=== PATIENT | female | born 1995 | race Two or more races ===

== ENCOUNTER 2024-07-25 15:46 | Outpatient (CLI) | payer SELFPAY ==
--- NOTE | 2024-07-25 15:45 | CRLHL7_ITS ---
For Patients: As a result of the Century Cures Act, medical imaging exams and procedure reports are released immediately into your electronic medical record. You may view this report before your referring provider. If you have questions, please contact your health care provider. OB ULTRASOUND ANATOMIC SURVEY LMP: 11/05/2023. EZIO by LMP: 08/11/2024. GA: 37 w, 4 d. INDICATION: Anemia complicating , third trimester. TECHNIQUE: Real time bernal scale imaging of the fetus was performed. position: Breech. Cervix: Not visualized. Placenta/cord: Fundal, Left Wall. Umbilical Cord: 3-vessel cord. Placenta insertion: Central. Amniotic Fluid: 4.4 cm SDP (greater than/equal to: 2- less than 8 cm). SURVEY: Observed Structures. Calvarium/Spine: Cerebellum: See comment. Cisterna Magna: See comment. Nuchal Fold: See comment. Lateral Ventricle: 4.6 mm. CSP: Yes. Midline Falx: Yes. Choroid Plexus: Yes. Spine: Yes. Abdomen: Stomach: Yes. Abd Cord Insertion: See comment. Urinary Bladder: Yes. Kidneys: Yes. Diaphragm: Yes. Face: Nose/lips: Yes. Orbital view: See comment. Profile: Yes. Limbs: Upper Extremities: See comment. Lower Extremities: Yes. Hands: Yes. Feet: Yes. Vascular: 4-Chamber Heart: Yes. LVOT: Yes. RVOT: See comment. 3VV: See comment. 3VTV: See comment. BPD: 9.0 cm. 36 w, 3 d, 37 percent. HC: 33.6 cm. 38 w, 3 d, 47 percent. AC: 35.8 cm. 39 w, 5 d, >97 percent. FL: 7.3 cm. 37 w, 2 d, 43 percent. FL/AC ratio: 20.34 percent. HC/AC ratio: 0.94. heart rate: 155 bpm. age by this US: 38 w, 0 d. EZIO by this US: 08/08/2024. EFW: 3541 g. Weight: 7 lbs, 13 oz. Percentile by EZIO: 84 percent. COMMENT: Limited exam due to age of 37 w 4 d. IMPRESSION: 1. Sonographic gestational age 38 weeks 0 days and sonographic due date 08/08/2024. Good correlation with dates. 2. Estimated weight 84th percentile. Abdominal circumference greater than 97th percentile. Jagjit Cummings M.D. Diagnostic Radiologist [email or web address] SP/Dictated by: Jagjit Cummings MD @ 07/25/2024 7:48:00 PM (Electronically Signed)
== END 2024-07-25 15:47 | disposition home or self-care (01) ==
LOC: US 15:47
PROVIDERS: Visit Provider Midwife
DX: O99.013 Anemia complicating pregnancy, third trimester (principal); Z3A.37 37 weeks gestation of pregnancy
CPT/HCPCS: 76805

== ENCOUNTER 2024-07-26 10:24 | Outpatient (CLI) | payer SELFPAY ==
[2024-07-26 10:29] VITALS: BP 115/73; PULSE 90; PULSE 93; PULSE 95; TEMP 36.7; O2SAT 93; O2SAT 97
[2024-07-26] MEDS: TERBUTALINE 1 MG/ML INJ 0.25 MG SUBCUT (11:40)
[2024-07-26 11:48] VITALS: PULSE 87; O2SAT 99
[2024-07-26] MEDS: LACTATED RINGERS 1000 ML 1,000 ML IV (11:50)
[2024-07-26 11:53] VITALS: PULSE 107; O2SAT 99
--- NOTE | 2024-07-26 12:03 | P.OBCN_ITS ---
OB - CN: HPI Date of Consult Date Seen: 07/26/24 Patient: [facility] Patient Consult date: 07/26/24 Requesting Physician: Susy Byrd MD Primary Care Provider: CNM group Consult Narrative Reason for consult: other (Breech presentation at 37 weeks for attempt at ECV) Narrative: The patient is a 28 year old G 4 P 1203 at 37 5/7 weeks gestation that was admitted to the Center on 07/26/24 for attempt at ECV due to malpresentation. History of Present Dating criteria: based on LMP care: limited care Ultrasounds: normal 1st trimester US (04/09/24: No detailed report, only assessment: The scan is normal and consistent with dates. Plan: Continue routine care.) and other (OB ultrasound completed on 07/25/2024: Breech presentation, fundal, left wall placenta, three-vessel umbilical cord, SDP:4.4cm. BPD: 37th percentile, HC: 47 percentile, AC: More than the 97th percentile, FL: 43rd percentile. EFW: 3541 g 84th percentile. Otherwise, limited exam due to age) complications comment: Transfer of care at 36 weeks, anemia, history of delivery with firs History History 4 Elective abortions 0 Para 3 Spontaneous abortions 0 Hx # Term Pregnancies 2 Ectopic pregnancies Hx # Pregnancies 1 Multiple births Number of Living Children 3 Past Pregnancies Del. Date GA/Weeks Outcome Route wt Inf Gender Labor Lgth Anesthesia Location Provider Compli 05/27/20 35 live - vaginal delivery 2.75 kg Male 11/05/21 38 live - full term vaginal delivery 3.685 kg Female [facility] 03/11/23 38 live - full term vaginal delivery 3.487 kg Male [facility] Labs Blood type: A (+) positive Rubella: immune RPR/VDLR: nonreactive GBS status: unknown HBsAG: unknown Review of Systems Status of ROS: Reports: 10 or more systems reviewed and unremarkable except as noted in History and below [facility] Medical History History of delivery ?Z87.51 - Personal history of pre-term labor (ICD-10) Depression ?F32.A - Depression, unspecified (ICD-10) Surgical History [place] teeth extracted ?K08.409 - Partial loss of teeth, unspecified cause, unspecified class (ICD- 10) Family History Father Diabetes Maternal Grandmother Preeclampsia Social History Smoking Status: Never smoker Meds Home Medications and Allergies Home Medications ?Medication ?Instructions ?Recorded ?Confirmed ?Type ferrous sulfate 27 mg iron tablet 27 mg PO QDAY 07/20/24 07/26/24 History magnesium 200 mg tablet 200 mg PO QDAY 07/20/24 07/26/24 History docosahexaenoic acid 200 mg 200 mg PO .qd 07/25/24 07/26/24 History capsule ( DHA) Allergies Allergy/AdvReac Type Severity Reaction Status Date / Time No Known Drug Allergies Allergy Verified 07/26/24 10:44 OB - H&P: Exam Physical Exam: Vital signs: Temp Pulse BP Pulse Ox 98.1 F 93 115/73 99 07/26/24 10:29 07/26/24 10:29 07/26/24 10:29 07/26/24 11:53 Narrative: Bedside US: Complete breech presentation, back towards maternal left and head at the LUQ, buttocks palpate disengaged from pelvis. NST: 140bpm/positive acceleration/1 small variable deceleration/moderate variability/sporadic uterine contractions prior to procedure. ECV procedure note: Patient arrived to center for trial of external cephalic version due to persistent king breech presentation at 37 5/7 weeks. We reviewed consent form and patient signed consent form. Reviewed risks of procedure such as premature rupture of membranes, needing an emergency delivery via a section, risk of placental abruption and stillbirth. NST at admission performed as above. We established IV line and one dose of Terbutaline 0.25mg SQ x1 was given. Bedside US completed as above. Patient was placed supine in bed. I had assistance from Nicolasa Pearce CNM. First attempt we performed was a clockwise rotation and this was successful. heart rate documented immediately after completion and initially found low, patient was placed towards the side, IVFs started and hear rate recovered in less than 1-2 minutes. Procedure ended. Patient will remain in unit at least 1 hour post procedure for long NST. Labor precautions and kick counts reviewed. She will follow up routinely in 1 week in clinic. OB - CN: A/P Assessment and Plan (1) Breech position of fetus: Status: Acute (2) Successful external cephalic version: Status: Acute Plan Successful ECV. Patient will complete at least 1 hour postprocedure of monitoring and if reactive will be able to discharge. We reviewed labor precautions as well as kick counts. She plans to continue routine care with midwives in 1 week.
--- NOTE | 2024-07-26 14:48 | PC.OBNST ---
NST Note NST Note Start: 07/26/24 10:15 Freq: ONCE Status: Discharge Protocol: Document 07/26/24 10:15 MMS (Rec: 07/26/24 14:47 MMS No Response) NST Note 4 Para (# of births) 3 EDC 08/11/24 Gestational Age In Weeks & Days 37 Weeks & 5 Days Patient Presented with Complaint(s) of Other Other Complaints ECV Reactive Yes Appropriate for Gestational Age Yes ELE Jurado, RN Date 07/26/24 Reactive Yes Appropriate for Gestational Age Yes ELE Martinez, ELE Date 07/26/24 OB NST charge Yes Complete NST Note via Write Note Yes The provider's electronic signature indicates the NST is reactive/appropriate for gestational age. *Note to provider: If an addendum is required, open the patient's chart and click on the note under the Nurse/Allied Health tab.
== END 2024-07-26 13:17 | disposition home or self-care (01) ==
LOC: OB CLI 10:24 → OB 10:25
PROVIDERS: Visit Provider Obstetrics & Gynecology
DX: O32.1XX0 Maternal care for breech presentation, not applicable or unspecified (principal); Z3A.37 37 weeks gestation of pregnancy
CPT/HCPCS: 59025; 59412; G0463; J3105; J7120

== ENCOUNTER 2024-08-04 00:36 | Inpatient (IN) | payer OTHER, SELFPAY ==
[2024-08-04] VITALS (26 sets, daily range): BP systolic 104–132; BP diastolic 61–74; PULSE 67–102; RESP 14–20; TEMP 36.7–37.1; O2SAT 97–98; BMI 30.6
--- NOTE | 2024-08-04 00:35 | W.PM.LDBA ---
Subjective History of Present Illness Narrative: Maureen is a 28 yo at 39 0/7 weeks being admitted to Labor and Delivery for spontaneous onset of labor. She reports she began having contractions yesterday evening. The then mostly resolved with irregular contractions lasting throughout the day. She then notes they became regular earlier this evening around 10 pm. She denies any leaking of fluid or bleeding. She has had mucous like discharge throughout the day with scant amount of bloody show. She is coping well. She is supported by her , Gaurav. Her full history and physical was dictated by VARINDER Ramon on 07/20/2024. Please see this for details. Specific Issues/Plans G4 P 3 Partner: Gaurav? H&P completed by Autumn REEDER 07/20/2024 Transfer at 36w6d?from the [facility] # Hx delivery?-1st baby at 35w5d # Anemia in -last draw 07/12/24-11.2 on iron supplementation # Breech position, RESOLVED Verified by bedside US. Will seek [facility] care, do Spinning Babies exercises and early f/u. Version successful 07/26/2024 ? Imaging:? 1st trimester: not done? Anatomy scan: 04/09/2024-done, but no results found in record. Asked RN to get. ?? Others: 07/25/2024: US shows no concerning findings. Much of anatomy was seen. Placenta fundal. Fetus breech. Normal EFW. ? COVID:?? Flu:??? Tdap:? 32wk Mental Health:? 34wk hgb:??? Pap: [(Only high-risk abnormal pap in problem list)]? ? For Transfer patients, include in problem list:?? Tx at 36 6/7 weeks gestation from [facility]?? OB Labs (01/07/2024): Blood type: A+, antibody screen negative. Hgb: 12.9 Platelets: 230 Rubella: Immune Varicella: Immune RPR: non-reactive HBsAg: non-reactive Hep B Immunity: not drawn Hep C: negative HIV: negative UC: negative GC/Chlamydia: negative/negative Pap (04/22/2023): NILM. Genetic screening: declined. 05/27/2024- 1hr gtt: 112, Hgb 10.1. GBS 07/15/2024: negative 3rd trimester hgb 07/12/2024: 11.2? OB - Problem Based A/P Additional Plan (1) Pain during labor: Status: Acute (2) 39 weeks gestation of : Status: Acute (3) Spontaneous onset of labor: Status: Acute Plan ASSESSMENT:? 28 at 39.0 weeks gestation? complicated by: hx of , anemia, breech at 37.4 with successful ECV? Labor type: Spontaneous, Early labor? Category 1 FHR pattern.?? Labor complicated by: None? GBS negative? ? PLAN:? 1. Routine intrapartum cares as ordered. Continue with expectant management? 2. Monitoring per policy, intermittent?after initial NST 3. Planning unmedicated . Desires water . Consent signed. Hep C negative. Candidate for analgesia of choice, if desired. 4. Patient encouraged to reposition and ambulate to promote physiologic labor and .? 5. Anticipate ? Delivery/Labor/Induction Plan Plan: expectant management OB Result Labs Blood Type: A (+) positive GBS Status: negative (Collected 07/15/2024 at outside facility) OB Exam Physical Exam Vital signs: Vital Signs Resp BP 20 120/68 08/04/24 02:19 08/04/24 02:19 Narrative: Vitals Reviewed Constitutional:? Alert and oriented x3 HEENT:? Normocephalic, atraumatic Neck:? Supple Lungs:? Clear to auscultation bilaterally Heart:? Regular rate and rhythm, no murmur, rub or gallop Abdomen:? Soft, nontender, and gravid. Vertex by Juan Ramon's, confirmed with cervical exam and Bedside US. Fetus direct OP on US. Extremities:? No edema or erythema Cervix: 5 cm/70%/-2 station/vertex NST: 135 bpm/moderate variability/15x15 accelerations/no decelerations/contractions every 1-4 minutes Detailed Labor and Delivery Exam Patient Gravid: Yes
[2024-08-04] MEDS: IBUPROFEN 600 MG TABLET PO ×2 (03:30→16:22)
--- NOTE | 2024-08-04 03:41 | W.PM.OBVAGDE ---
OB Procedure Vag Delivery Mother Details Mother Details: Maureen is a 28 year-old, 4, now Para 4, admitted on 08/04/24 at 39.0 weeks gestation. : 4 Para: 4 Weeks Gestation: 39.0 Admission Date: 08/04/24 Additional Details Amniotic Membrane Status: AROM Amniotic Membrane Rupture Date: 08/04/24 Amniotic Membrane Rupture Time: 00:30 Amniotic Membrane Fluid Description: Clear Analgesia/Anesthesia Type: None Waterbirth: No Pitcoin: No Intrapartal Events: Precipitous Labor <3 Hrs Labor Onset: 00:30 Complete: 02:39 Pushin:39 Heart: heart tones during second stage were intermittently auscultated by doppler with reassuring FHR. Delivery Details Delivery Date: 08/04/24 Delivery Time: 03:06 Route of delivery: Gender: Female Viability: Alive; Heart Rate Present Position at Delivery: OA Delivery Details: Patient was admitted for spontaneous onset of labor. Bedside US was performed on admission due to hx of breech in 3rd trimester with successful ECV at 37.5 weeks, fetus confirmed vertex in direct OP position. AROM performed for augmentation at 0030 then she progressed precipitously. AROM at 0030 with clear fluid. She labored in the tub and began pushing intermittently with urge at peak of contraction around 0208. After about 25 minutes, she felt minimal progress was being made and requested to exit the tub and desired SVE. She then labored on the toilet before feeling more pressure and intense urge to push. SVE was performed when she got into the bed and she was 7/90/0. She started involuntarily pushing with contractions shortly after. Patient was assumed complete with pushing at 0239. of a viable female at 0306 in position in kneeling position on the bed. Time from head to body was approximately 40 seconds due to end of a contraction with delivery of head. She began pushing with start of next contraction. Vertex delivered OA. No nuchal cord or shoulder. Body delivered easily and without incident. passed to mothers abdomen with a vigorous cry. Cord was clamped and cut at > 5 minutes. APGARS were 8 at one minute and 9 at five minutes respectively. Mouth was bulb suctioned. Intact placenta with a 3 vessel cord delivered spontaneously at 0315. Fundus firm. Intact perineum identified. QBL 25 cc. Mother and baby stable; mother plans to breastfeed. Infant weight pending. 1 Minute Interval Total Score: 8 5 Minute Interval Total Score: 9 Additional Details Shoulder Dystocia: No Placental Delivery Description: Spontaneous Procedure Done: Global Blood Loss: 25 Laceration: None Blood Loss Measurement Type: QBL Bakri Used: No Cord Vessel Description: 3 Vessels Event Summary Status: Mother and infant were stable after delivery. Disposition: floor
[2024-08-05 00:24] VITALS: BP 117/73; PULSE 81; RESP 18; TEMP 36.2; O2SAT 98
[2024-08-05 04:37] VITALS: BP 108/73; PULSE 86; RESP 16; TEMP 36.6; O2SAT 97
--- NOTE | 2024-08-05 07:29 | PM.OBDSVD1 ---
DS: Providers Provider Date Seen: 08/05/24 Date of admission: 08/04/24 00:36 Primary care physician: Not a Local Provider Admitting Clinician: Wendy Pearce CNM Attending Physician on discharge: Wendy Pearce CNM Date of Discharge: 08/05/24 DS: Diagnosis Discharge Diagnosis (1) care following vaginal delivery: Status: Acute (2) Lactating mother: Status: Acute Exam Narrative: Exam Narrative: GENERAL APPEARANCE:? normal affect, alert, no distress? MOOD:? appropriate? CHEST:? clear to auscultation and percussion? HEART:? regular rate and rhythm? ABDOMEN:? soft, non-tender the uterine fundus is U/2 and is appropriate for the stage of recovery.? PERINEUM:? mild edema of the perineum, there is a intact perineum that is healing well.? EXTREMITIES:? normal and no edema? Const: Vital Signs, click to edit/add: Vital Signs - 24 hr 08/04/24 08:09 08/04/24 13:16 08/04/24 16:20 Temperature 98.6 F 98.1 F 98.8 F Pulse Rate [Pulse Oximeter] 93 95 84 Respiratory Rate 14 16 16 Blood Pressure [Le ft Arm] 107/63 104/64 116/70 Pulse Oximetry 98 97 97 Oxygen Delivery Me thod Room Air Room Air Room Air 08/04/24 19:59 08/05/24 00:24 08/05/24 04:37 Temperature 98.1 F 97.2 F L 97.8 F Pulse Rate [Pulse Oximeter] 90 81 86 Respiratory Rate 18 18 16 Blood Pressure [Le ft Arm] 116/73 117/73 108/73 Pulse Oximetry 97 98 97 Oxygen Delivery Me thod Room Air Room Air Room Air Documenting provider has reviewed patient's vital signs: yes OB - DS: Summary Hospital Course Hospital Course: Maureen is a 28 year old G 4 P 4 at 39.0 weeks gestation that was admitted to the Center on 08/04/24 for spontaneous labor. She had an uncomplicated vaginal delivery. She delivered a viable female infant. She is breast feeding. the patient has done well. Her pain is well controlled with current medications.?She declines prescriptions for ibuprofen or stool softeners. She elects to use OTC medications as needed. She has no new complaints.? Urinary output is adequate and she is voiding without difficulty.? Has a good appetite, is tolerating a general diet, is passing flatus, and has not yet had a bowel movement.? Has scant amount of rubra lochia.? She is ambulating well. Her partner is planning a vasectomy and they plan on using condoms until testing is complete after the procedure. Peripartum Data Infant delivery method: Vaginal Laceration description: None Episiotomy description: None complications: none Gender: Female Discharge Plan: Home Status at Discharge Functional status at discharge: independent ambulation Overall status at discharge: patient is progressing back to baseline Time Spent with Patient Time attestation: Total time spent providing and/or coordinating discharge services: Discharge Plan Discharge Disposition: Home, Self-Care Date of Admission: 08/04/24 00:36 Attending Provider on Discharge: Christine Portillo Primary Care Provider: Provider,Not a Local Condition: Stable Anticipated Discharge Date/Time: 08/05/24 09:00 Discharge Medications: Continued ferrous sulfate 27 mg iron tablet 27 mg PO QDAY magnesium 200 mg tablet 200 mg PO QDAY DHA 200 mg capsule 200 mg PO .qd Discharge Orders: Discharge Order (Routine); Ordered 08/05/24 Ordered By: Christine Portillo Patient Education: OB Vaginal/Breast Feeding Additional Instructions: Discharge instructions were reviewed with the patient including signs and symptoms of infection and home going medications.? Lifting Restrictions: 20 pounds for 6? weeks? ?? Do not drive while taking narcotic pain meds.? Off Work or School for 6 weeks.? ?? Symptoms to report to doctor:? -Bleeding that saturates more than one pad per hour? -Passing clots larger than the size of a golf ball? -Pain not relieved by prescribed medication? -Fever above 100.4 degrees Fahrenheit? -A foul vaginal odor? -Difficulty in emotions, mood and functions? -Thoughts of hurting yourself and/or ? -Painful, reddened area in your breast? -Any drainage, redness or tenderness in your IV/epidural site? -Severe headache that doesn't improve after taking medications? -Changes in vision, including temporary loss of vision, blurred vision, and/or light sensitivity? -Upper abdominal pain (usually under ribs on the right side)? -Decrease in urination or painful, frequent urinating? -Chest pain? -Shortness of breath? -Tenderness or pain with redness and/swelling in the calf(s) of your leg? ?? Follow Up in clinic in 2 and 6 weeks.? ?? consultation services are available to all mothers and babies for the first year after delivery.? To make an appointment, please call [phone].? Activity Level: Activity as Tolerated Discharge Diet: Regular Follow Up Appointments: [facility] [Provider Group] Provider,Not a Local [Primary Care Provider] - Forms: MyHealth Info Instructions
[2024-08-05 07:53] VITALS: BP 108/64; PULSE 77; RESP 16; O2SAT 97
== END 2024-08-05 09:12 | disposition home or self-care (01) | DRG 807 ==
LOC: OB OUT 00:36 → OB 00:36
PROVIDERS: Admitting Provider Advanced Practice Midwife; Visit Provider Advanced Practice Midwife
DX: O99.02 Anemia complicating childbirth (principal); Z37.0 Single live birth; D64.9 Anemia, unspecified; Z3A.39 39 weeks gestation of pregnancy; Z87.51 Personal history of pre-term labor
CPT/HCPCS: 76815; 86592; A9270